=== PATIENT | female | born 1970 | race African-American/Black ===

== ENCOUNTER 2016-11-04 20:19 | Emergency (ER) | payer MEDICAID, OTHER ==
[~2016-11-04] VITALS: Ht 172.7 cm; Wt 184.8 kg
[2016-11-04 21:47] LABS: BASOPHILS % 0.4 % (0.0-2.0); EOSINOPHILS % 1.5 % (0.0-5.0); HEMATOCRIT. 35.6 % (36.0-48.0); HEMOGLOBIN. 11.8 g/dL (12.0-16.0); LYMPHOCYTES % 16.6 % (20.0-50.0); MEAN CORPUSCULAR HEMOGLOBIN 30.6 pg (28.0-32.0); MEAN CORPUSCULAR VOLUME 91.9 fL (81.0-99.0); MEAN PLATELET VOLUME 6.8 fl (7.4-10.4); MONOCYTES % 11.1 % (2.0-8.0); NEUTROPHILS % 70.4 % (40.0-76.0); PLATELET 203 x1000/uL (130-400); RED BLOOD CELL COUNT 3.87 mill/uL (4.2-5.4); RED CELL DISTRIBUTION WIDTH 14.6 % (11.6-14.6)
[2016-11-04 21:49] LABS: CHLORIDE 103 mEq/L (98-107)
[2016-11-04 21:51] LABS: HCG SCREEN NEGATIVE
[2016-11-04 21:54] LABS: CARBON DIOXIDE 30 mEq/L (21-32)
[2016-11-04 22:01] LABS: D-DIMER 5.86 mg/L FEU (<0.50); PROTHROMBIN TIME 10.7 sec
[2016-11-04 22:02] LABS: TROPONIN I < 0.02 ng/mL (0.00-0.04)
[2016-11-05 03:13] VITALS: BP 101/66
[2016-11-05] MEDS ORDERED: IOHEXOL-350 100 ML BOTTLE ONE (13:51)
[2016-11-05] MEDS ORDERED: SODIUM CHLORIDE 0.9% 10ML VIAL ONE (13:51)
== END 2016-11-05 03:47 | disposition home or self-care (01) ==
LOC: ER 20:46
DX: R07.9 Chest pain, unspecified (principal); R20.0 Anesthesia of skin; J45.909 Unspecified asthma, uncomplicated; I10 Essential (primary) hypertension; Z88.0 Allergy status to penicillin; Z88.8 Allergy status to other drugs, medicaments and biological substances
CPT/HCPCS: 36415; 70450; 71010; 71275; 80053; 83880; 84484; 84703; 85025; 85379; 85610; 93005; 99285; A4216; Q9967